=== PATIENT | female | born 1965 | race African-American/Black ===

== ENCOUNTER 2017-02-27 13:34 | Emergency (ER) | payer MEDICARE | END 2017-02-27 16:03 | disposition home or self-care (01) | LOC: D.ER 13:34 | DX: M54.9 Dorsalgia, unspecified (principal); S29.012A Strain of muscle and tendon of back wall of thorax, initial encounter; X58.XXXA Exposure to other specified factors, initial encounter; Y93.89 Activity, other specified; Y92.89 Other specified places as the place of occurrence of the external cause; I10 Essential (primary) hypertension; F17.200 Nicotine dependence, unspecified, uncomplicated ==

== ENCOUNTER 2017-03-11 14:31 | Emergency (ER) | payer MEDICAID | END 2017-03-11 16:28 | disposition home or self-care (01) | LOC: D.ER 14:31 | DX: M54.6 Pain in thoracic spine (principal); S22.059A Unspecified fracture of T5-T6 vertebra, initial encounter for closed fracture; V43.52XA Car driver injured in collision with other type car in traffic accident, initial encounter; Y93.89 Activity, other specified; Y92.410 Unspecified street and highway as the place of occurrence of the external cause; M25.552 Pain in left hip; M25.551 Pain in right hip; I10 Essential (primary) hypertension; F17.200 Nicotine dependence, unspecified, uncomplicated ==

== ENCOUNTER 2017-04-09 11:34 | Emergency (ER) | payer MEDICARE | END 2017-04-09 12:26 | disposition home or self-care (01) | LOC: D.ER 11:34 | DX: M79.604 Pain in right leg (principal); I10 Essential (primary) hypertension ==

== ENCOUNTER 2017-12-14 12:34 | Emergency (ER) | payer MEDICARE ==
[~2017-12-14] VITALS: Ht 149.9 cm; Wt 77.3 kg
[2017-12-14 12:44] VITALS: Ht 149.9 cm; Wt 77.3 kg
[2017-12-14] MEDS ORDERED: BP MED (12:45)
[2017-12-14] MEDS ORDERED: CYCLOBENZAPRINE10 MG PO (16:09)
[2017-12-14] MEDS ORDERED: EC-NAPROSYN500 MG PO (16:09)
[2017-12-14 17:03] VITALS: BP 115/51
== END 2017-12-14 17:04 | disposition home or self-care (01) ==
LOC: D.ER 12:34
DX: S39.012A Strain of muscle, fascia and tendon of lower back, initial encounter (principal); X58.XXXA Exposure to other specified factors, initial encounter; Y93.89 Activity, other specified; Y92.89 Other specified places as the place of occurrence of the external cause; M79.661 Pain in right lower leg; I10 Essential (primary) hypertension

== ENCOUNTER 2017-12-14 14:20 | Emergency (ER) | payer MEDICARE ==
[2017-12-14 12:44] VITALS: BMI 34.4
[~2017-12-14 14:20] MED LIST: BP MED
[2017-12-14] MEDS ORDERED: EC-NAPROSYN500 MG PO (16:09)
[2017-12-14] MEDS ORDERED: CYCLOBENZAPRINE10 MG PO (16:09)
== END 2017-12-14 15:30 | disposition left against medical advice (07) ==
LOC: D.ER 14:20
DX: S39.012A Strain of muscle, fascia and tendon of lower back, initial encounter (principal); X58.XXXA Exposure to other specified factors, initial encounter; Y93.89 Activity, other specified; Y92.89 Other specified places as the place of occurrence of the external cause; M79.661 Pain in right lower leg; I10 Essential (primary) hypertension

== ENCOUNTER 2019-08-18 15:57 | Emergency (ER) | payer MEDICARE ==
[~2019-08-18] VITALS: Ht 149.9 cm; Wt 67.7 kg
[~2019-08-18 15:57] MED LIST changes: +CYCLOBENZAPRINE10 MG PO; +EC-NAPROSYN500 MG PO
[2019-08-18 16:38] VITALS: BP 206/112; Ht 149.9 cm; Wt 67.7 kg
[2019-08-18] MEDS ORDERED: LISINOPRIL-HCT1 EAC7 PO (16:42)
[2019-08-18] MEDS ORDERED: NORVASC10 MG PO (16:43)
[2019-08-18] MEDS ORDERED: NORVASC5 MG PO (17:25)
[2019-08-18] MEDS ORDERED: LISINOPRIL-HCT1 EAC8 PO (17:25)
== END 2019-08-18 22:32 | disposition left against medical advice (07) ==
LOC: D.ER 15:57
DX: I10 Essential (primary) hypertension (principal); R52 Pain, unspecified; Z72.0 Tobacco use; Z53.21 Procedure and treatment not carried out due to patient leaving prior to being seen by health care provider

== ENCOUNTER 2020-04-15 22:58 | Emergency (ER) | payer MEDICARE ==
[~2020-04-15] VITALS: Ht 149.9 cm; Wt 90.9 kg
[~2020-04-15 22:58] MED LIST changes: +LISINOPRIL-HCT1 EAC7 PO; +LISINOPRIL-HCT1 EAC8 PO; +NORVASC10 MG PO; +NORVASC5 MG PO
[2020-04-15 23:03] VITALS: BP 128/92; Ht 149.9 cm; Wt 90.9 kg
[2020-04-15 23:45] LABS: HEMATOCRIT 41.6 % (36.0-48.0); HEMOGLOBIN 13.5 g/dL (12-16); LYMPHOCYTES 47.5 % (15-50); MCHC 32.5 g/dL (31.0-37.0); MCV 86.1 fL (80.0-100.0); MEAN PLATELET VOLUME 8.5 fL (7.4-10.4); NEUTROPHILS 45.8 % (40-80); PLATELET COUNT 258 10x3/uL (130-400); RBC 4.83 10x6/uL (4.00-5.40); RDW 13.1 % (11.5-14.5); WBC 7.4 10x3/uL (4.8-10.8)
[2020-04-15 23:51] LABS: ANION GAP 8.2 mmol/L (8-16); CALCIUM 9.2 mg/dL (8.5-10.1); CARBON DIOXIDE 29.3 mmol/L (21.0-32.0); CREATININE - SERUM 0.9 mg/dL (0.6-1.3); POTASSIUM - SERUM 3.5 mmol/L (3.5-5.1)
[2020-04-15 23:57] LABS: ALBUMIN 3.4 g/dL (3.4-5.0); BILIRUBIN - TOTAL 0.28 mg/dL (0.2-1.3); PROTEIN - SERUM 7.6 g/dL (6.4-8.2)
[2020-04-16 00:44] LABS: BILIRUBIN NEGATIVE (NEGATIVE); KETONE NEGATIVE (NEGATIVE); NITRITE NEGATIVE (NEGATIVE); UROBILINOGEN NORMAL mg/dL (< 2)
[2020-04-16 00:49] LABS: UDS - AMPHET NEGATIVE QUAL (NEGATIVE); UDS - BARB NEGATIVE QUAL (NEGATIVE); UDS - BENZO NEGATIVE QUAL (NEGATIVE); UDS - COCAINE NEGATIVE QUAL (NEGATIVE); UDS - OPIATE NEGATIVE QUAL (NEGATIVE); UDS - PCP NEGATIVE QUAL (NEGATIVE); UDS - THC NEGATIVE QUAL (NEGATIVE)
== END 2020-04-16 01:09 | disposition home or self-care (01) ==
LOC: D.ER 22:58
PROVIDERS: Emergency Medicine
DX: M79.604 Pain in right leg (principal); I10 Essential (primary) hypertension; R56.9 Unspecified convulsions; Z72.0 Tobacco use